=== PATIENT | female | born 1955 | race Caucasian/White ===

== ENCOUNTER 2024-08-25 15:33 | Emergency (ER) | payer MEDICARE, OTHER, SELFPAY ==
[2024-08-25 15:36] VITALS: BP 139/91
[2024-08-25 15:54] LABS: Hematocrit 43.6 % (37.0-47.0); Hemoglobin 14.3 g/dL (12.0-16.0); Mean Corp Hgb Conc. 32.8 g/dL (33.0-37.0); Mean Corpuscular Volume 93.4 fL (81.0-99.0); Nucleated Red Blood Cells % 0 %; Platelet Count 247 10^3/uL (130-400); Red Cell Dist. Width 13.3 % (11.5-14.5)
[2024-08-25 16:06] LABS: Urine Character Slightly Cloudy (Clear)
[2024-08-25 16:15] LABS: Urine Squamous Cell >30 /LPF (Few)
[2024-08-25 16:16] LABS: ALT (SGPT) 19 U/L (0-35); AST (SGOT) 25 U/L (14-36); Albumin 5.2 g/dl (3.5-5.0); Alkaline Phosphatase 59 U/L (38-126); Blood Urea Nitrogen 12 mg/dl (7-17); Calcium 10.4 mg/dl (8.4-10.2); Carbon Dioxide 26 mmol/L (22-30); Chloride 107 mmol/L (98-107); Glucose 110 mg/dl (70-99); Potassium 4.6 mmol/L (3.5-5.1); Sodium 142 mmol/L (135-145); Total Protein 8.0 g/dl (6.3-8.2); Urine Red Blood Cell 0-2 /HPF (0-2); eGFR > 60.00
--- NOTE | 2024-08-25 17:29 | ED.GENMED ---
History of Present Illness
General
Chief Complaint: Back Pain
Source: patient and spouse
Exam Limitations: none
Time Seen by Provider: 08/25/24 17:14
Nursing documentation reviewed up to this point in time: agreed with
History of Present Illness
History of Present Illness:
69-year-old female presents the emergency department complaining of left flank pain ongoing since 08/19/2024.
Past History
Past History
ED Past Medical History: Other (Migraines)
ED Past Surgical History: Bowel resection and Gynecological (Tube ligation)
Social History
Tobacco: Non-smoker
Alcohol: None
Drug: None
Personal:
Living: with family
Review of Systems
Review of Systems
Allergies reviewed?: Yes
All Other Systems: Not applicable
Constitutional: Reports no symptoms
EENT: Reports no symptoms
Respiratory: Reports cough
Cardiac: Reports no symptoms
ABD/GI: Reports no symptoms
: Reports no symptoms
Musculoskeletal: Reports no symptoms
Skin: Reports no symptoms
Neurological: Reports no symptoms
Endocrine: Reports no symptoms
Hematologic/Lymphatic: Reports no symptoms
Psychiatric: Reports no symptoms
Phy Exam
Physical Exam
Physical Exam:
Physical Exam
General: no apparent distress, not acutely ill
Neck: supple. no meningeal signs. normal posterior pharynx
Heart: s1/s2 regular rate and rhythm, no murmur. equal radial
pulses.
HEENT: Pupils equal round reactive to light, EOMI
Lungs: no acute respiratory distress. clear bilaterally
Abdomen: normal bowel sounds. not tender. no CVAT
Neuro: alert and oriented. no focal neurological deficits cranial nerves II through XII intact
Skin: no rash
Psychiatric: well kept. interactive and cooperative
Extremities: no edema. no calf tenderness. negative homans. good distal pulses
Course
Orders/Labs/Results
Orders:
Orders
08/25/24 15:46
CBC/With Diff [Complete Blood Count/With Diff] Urgent
CMP [Comprehensive Metabolic Panel] Urgent
Urinalysis Reflex To Culture Urgent
Date Specimen was Collected: 08/25/24
Time Specimen was Collected: 15:40
Urine Microscopic Reflex Cult Urgent
Urine Culture Urgent
JCARLOS Source: U
Specimen Description:
Date Specimen was Collected: 08/25/24
Time Specimen was Collected: 15:40
08/25/24 17:28
US Abdomen Complete/Upper Urgent
Comment:
Reason For Exam: epigastric/LUQ pain
08/25/24 17:29
CR Chest - 2 Views Urgent
Comment:
Reason For Exam: chills, cough, LUQ pain
Abnormal Lab Results
08/25/24
15:46
MCHC 32.8 L g/dL
(33.0-37.0)
Glucose 110 H mg/dl
(70-99)
Calcium 10.4 H mg/dl
(8.4-10.2)
Albumin 5.2 H g/dl
(3.5-5.0)
Ur Occult Blood Reflex 2+ A
(Negative)
Leukocyte Esterase Rfl 1+ A
(Negative)
Urine Bacteria (Reflex) Few A
(Negative)
Urine Albumin (Reflex) 2+ A
(Neg - Trace)
08/25/24 15:46
08/25/24 15:46
Vital Signs
Initial and Last Documented VS:
Initial Vital Signs
Temp Pulse Resp BP Pulse Ox
98.0 F 103 15 139/91 97
08/25/24 15:36 08/25/24 15:36 08/25/24 15:36 08/25/24 15:36 08/25/24 15:36
Last Documented Vital Signs
Temp Pulse Resp BP Pulse Ox
98.0 F 72 18 137/85 97
08/25/24 15:36 08/25/24 21:31 08/25/24 21:31 08/25/24 21:31 08/25/24 17:32
MDM/Problems Addressed
Differential Diagnosis Includes:
UTI, pyelonephritis, kidney stone, pneumonia
MDM/Problems Addressed:
69-year-old female with left flank pain, and UTI which she is under treatment for. Stable for discharge. No other source of infection. Follow-up with primary care.
*Radiology
Radiology exam reviewed: radiology read reviewed (Chest x-ray no acute findings, ultrasound no acute findings)
*Pulse Oximetry
SaO2: 97
Oxygen Mode of Delivery: Room air
Patient hypoxic: no
*Critical Care Note
Total Time (30-74mins, 75-104mins- exclusive of procedures): Not Applicable
Patient Management
Social determinants of health affecting care: Living situation and Strong social support
Escalation/DeEscalation of care consider admission/obs:
Admit not indicated
ED Attending Note
-
Portions of this chart may have been created with voice recognition software.� Occasional wrong word or��sound alike� substitutions may have occurred due to the inherent limitations of voice recognition software.
Discharge Plan
Departure
Patient Disposition: Home (Routine Discharge)
Date of Disposition: 08/25/24
Time of Disposition: 21:23
Patient with high blood pressure during this ER visit?: Yes
Condition: Good
Discharge Problem:
Acute UTI (urinary tract infection), Left flank pain
Instructions: Urinary tract infections in adults, Flank pain - ED discharge instructions, BLOOD PRESSURE
Referrals:
Jeremiah Mcdowell MD [Family Provider, Family Practice] - Call in 1-3 days for appt
Interventions
Interventions:
*Risk Screen - Suicide Last Done: 08/25/24 15:36
*General Assessment Last Done: 08/25/24 15:36
*Neglect/Abuse Screening Last Done: 08/25/24 15:36
*Nursing Disposition Last Done: 08/25/24 21:32
ED-Musculoskeletal Assessment Last Done: 08/25/24 20:23
Discharge Date and Time
Discharge Date/Time: 08/25/24 21:32
Print Language: BULGARIAN
[2024-08-25 21:31] VITALS: BP 137/85
== END 2024-08-25 21:32 | disposition home or self-care (01) ==
LOC: EMR 15:33
PROVIDERS: Student in an Organized Health Care Education/Training Program; EMERGENCY PHYSICIAN Emergency Medicine; FAMILY PHYSICIAN Family Medicine
DX: N39.0 Urinary tract infection, site not specified (principal)
CPT/HCPCS: 99284; 71046; 76700; 80053; 81003; 81015; 85025; 87086